=== PATIENT | female | born 2000 | race Caucasian/White ===

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

== ENCOUNTER 2022-01-17 00:50 | Inpatient (IN) | payer BC ==
[2022-01-17] VITALS (187 sets, daily range): BP systolic 105–127; BP diastolic 54–74; PULSE 87–119; TEMP 97.3–98.7; O2SAT 78–100
[~2022-01-17] VITALS: Ht 162.6 cm; Wt 70.9 kg
[2022-01-17 01:20] LABS: COLLECTION METHOD CLEAN CATCH
[2022-01-17 01:24] LABS: BASO # 0.1 K/mm3 (0.0-0.2); BASO % 0.6 % (0.0-2.0); EOS # 0.1 K/mm3 (0.0-0.7); EOS % 0.7 % (0.0-4.0); GRAN # 7.4 K/mm3 (1.4-6.5); GRAN % 63.6 % (42.2-75.2); HEMATOCRIT 42.3 % (35.0-45.0); HEMOGLOBIN 14.1 g/dl (12.0-15.0); LYMPH # 3.2 K/mm3 (1.2-3.4); LYMPH % 27.7 % (20.0-51.0); MEAN CELL VOLUME 90 fl (80.0-95.0); MEAN CORPUSCULAR HEMOGLOBIN 30 pg (26-32); MEAN CORPUSCULAR HGB CONC 33 g/dl (33.0-37.0); MEAN PLATELET VOLUME 10.8 fl (7.4-10.4); MONO # 0.8 K/mm3 (0.1-0.6); MONO % 6.8 % (1.7-9.3); PLATELET COUNT 431 K/mm3 (130-400); RED BLOOD COUNT 4.72 M/mm3 (4.10-5.30); REDCELL DISTRIBUTION WIDTH-CV 13.2 % (11.5-14.5)
[2022-01-17 01:27] LABS: PH 5 (5-8); SQUAMOUS EPITHELIAL 0-2 /hpf (0-10); URINE APPEARANCE Clear (CLEAR/HAZY); URINE BACTERIA None Seen /hpf (NONE SEEN); URINE BILIRUBIN Negative (NEGATIVE); URINE BLOOD 1+ (NEGATIVE); URINE COLOR Straw (YELLOW); URINE GLUCOSE 3+ (NEGATIVE); URINE KETONE 2+ (NEGATIVE); URINE LEUKOCYTE ESTERASE Negative (NEGATIVE); URINE NITRATE Negative (NEGATIVE); URINE PROTEIN(semi-quant) Negative (NEGATIVE); URINE RBC None Seen /hpf (0-2); URINE UROBILINOGEN Negative (NEGATIVE)
[2022-01-17 01:47] LABS: ALBUMIN 4.9 gm/dL (3.5-5.0); BILIRUBIN,TOTAL 0.6 mg/dL (0.2-1.2); CALCIUM 10.1 mg/dL (8.4-10.2); CREATININE, serum 1.63 mg/dL (0.57-1.11); POTASSIUM 4.4 mmol/L (3.5-4.5); TOTAL PROTEIN 8.8 gm/dL (6.2-8.1)
[2022-01-17] MEDS ORDERED: PROZAC60 MG PO (02:20)
[2022-01-17] MEDS ORDERED: LYUMJEV100 UNIT/1 SQ (02:22)
[2022-01-17 02:28] LABS: MAGNESIUM 2.3 mg/dL (1.7-2.2); PHOSPHOROUS 5.9 mg/dL (2.3-4.7)
[2022-01-17 02:47] LABS: TROPONIN-I < 0.010 ng/mL (0.00-0.033)
--- NOTE | 2022-01-17 03:57 | NUR ---
ASSUMED CARE OF PATIENT AFTER RECEIVING BEDSIDE REPORT FROM ER. PATIENT ABLE TO AMBULATE INDEPENDENTLY. PATIENT DENIES COMPLAINTS, CONCERNS, AND PAIN AT THIS TIME. PATIENT REPORTS FEELING MUCH BETTER. VSS. WILL CONTINUE TO MONITOR.
[2022-01-17 04:48] LABS: ANION GAP 25 mmol/L (7-16); BLOOD UREA NITROGEN 13 mg/dL (8-21); CALCIUM 8.4 mg/dL (8.4-10.2); CHLORIDE 112 mmol/L (98-107); CREATININE, serum 1.16 mg/dL (0.57-1.11); GLUCOSE 227 mg/dL (70-99); POTASSIUM 4.5 mmol/L (3.5-4.5); SODIUM 143 mmol/L (136-145)
[2022-01-17 04:54] LABS: CARBON DIOXIDE 6 mmol/L (22-29)
[2022-01-17 06:03] LABS: CALCIUM 8.3 mg/dL (8.4-10.2); CREATININE, serum 1.06 mg/dL (0.57-1.11); POTASSIUM 4.7 mmol/L (3.5-4.5)
--- NOTE | 2022-01-17 07:00 | NUR ---
REPORT RECEIVED FROM KILO PHELPS. PT SITTING UP IN CHAIR THIS AM. SLEPT MOST OF THE NIGHT IN CHAIR. NO OBVIOUS S/S DISCOMFORT. NO FLUIDS/GTTS RUNNING AT THIS TIME. PT RECEIVED 2 UNITS FFP OVERNIGHT FOR CRITICALLY HIGH INR. RHINO ROCKET IN PLACE IN LEFT NARE. DRIED BLOOD PRESENT AROUND NARE; NO ACTIVE BLEEDING. PT IN DROPLET/CONTACT ISOLATION DUE TO PENDING RESPIRATORY AND GI PANELS. PT WEARS 5L SIMPLE FACEMASK; WEARS 3L AT BASELINE. PLAN FOR ECHO THIS AM.
[2022-01-17 08:24] LABS: ANION GAP 16 mmol/L (7-16); BLOOD UREA NITROGEN 9 mg/dL (8-21); CALCIUM 8.1 mg/dL (8.4-10.2); CHLORIDE 114 mmol/L (98-107); CREATININE, serum 0.96 mg/dL (0.57-1.11); GLUCOSE 150 mg/dL (70-99); POTASSIUM 4.5 mmol/L (3.5-4.5); SODIUM 138 mmol/L (136-145)
[2022-01-17 08:29] LABS: CARBON DIOXIDE 8 mmol/L (22-29)
[2022-01-17 08:31] LABS: TROPONIN-I 6 HR POST INITIAL < 0.010 ng/mL (0.00-0.033)
[2022-01-17 12:41] LABS: CALCIUM 8.3 mg/dL (8.4-10.2); CREATININE, serum 0.96 mg/dL (0.57-1.11); POTASSIUM 3.9 mmol/L (3.5-4.5)
[2022-01-17 15:11] LABS: CALCIUM 8.4 mg/dL (8.4-10.2); CREATININE, serum 0.94 mg/dL (0.57-1.11); POTASSIUM 4.2 mmol/L (3.5-4.5)
--- NOTE | 2022-01-17 16:05 | NUR ---
court worker met with patient to discuss discharge planning. Patient states she lives in [place] with her parents and was visiting friends in [place]. Patient states that she her primary care provider is in [place] and that her insurance covers the cost of her insulin. Patient plans to return to her parents home upon discharge. Patient plans to discharge to parents home possibly tomorrow.
[2022-01-17 16:26] LABS: CALCIUM 8.7 mg/dL (8.4-10.2); CREATININE, serum 0.98 mg/dL (0.57-1.11); POTASSIUM 3.9 mmol/L (3.5-4.5)
--- NOTE | 2022-01-17 18:30 | NUR ---
Hold for 30 minutes then restart at 2units/hr.
[2022-01-17 18:35] LABS: CALCIUM 9.5 mg/dL (8.4-10.2); CREATININE, serum 1.02 mg/dL (0.57-1.11); POTASSIUM 3.7 mmol/L (3.5-4.5)
[2022-01-17 20:07] LABS: CALCIUM 8.5 mg/dL (8.4-10.2); CREATININE, serum 0.9 mg/dL (0.57-1.11); POTASSIUM 3.4 mmol/L (3.5-4.5)
[2022-01-17 22:33] LABS: CREATININE, serum 0.52 mg/dL (0.57-1.11); POTASSIUM 3.6 mmol/L (3.5-4.5)
[2022-01-17 22:41] LABS: CALCIUM 5.9 mg/dL (8.4-10.2)
[2022-01-18] VITALS: BP 133/92; PULSE 76; TEMP 97.3
[2022-01-18 04:00] VITALS: BP 120/70; PULSE 73; TEMP 97.4
[2022-01-18 05:54] LABS: CALCIUM 8.4 mg/dL (8.4-10.2); CREATININE, serum 0.7 mg/dL (0.57-1.11); MAGNESIUM 1.6 mg/dL (1.7-2.2); POTASSIUM 3.5 mmol/L (3.5-4.5)
[2022-01-18 08:30] VITALS: PULSE 81; TEMP 98.2
[2022-01-18] MEDS ORDERED: MAG-OX 400400 MG/TAB PO (09:39)
[2022-01-18] MEDS ORDERED: ZOFRAN ODT4 MG PO (09:40)
--- NOTE | 2022-01-18 11:50 | NUR ---
PT GETTING READY TO D/C HOME. FINISHED EATING LUNCH APPROX 30 MINUTES AGO. BLOOD GLUCOSE 401. PT USING HER HOME SLIDING SCALE AND GIVING HERSELF 14 UNITS REGULAR INSULIN NOW AND WILL CHECK BLOOD GLUCOSE 2 HOURS POST PRANDIAL.
--- NOTE | 2022-01-18 12:33 | NUR ---
PT D/C'D TO HOME. DISCHARGE INSTRUCTIONS AND MEDICATIONS REVIEWED. PT GIVEN EDUCATION ON DKA. THIS NURSE EDUCATED PT ON IMPORTANCE OF WEARING DEXCOM AND INSULIN PUMP. PT STATES SHE WILL PUT BOTH ON ONCE SHE GETS HOME. PT VERBALIZED UNDERSTANDING OF EDUCATION. BOTH IV'S REMOVED.
== END 2022-01-18 12:33 | disposition home or self-care (01) | DRG 638 ==
LOC: COL.ER 00:50 → ICU 02:00
PROVIDERS: Emergency Medicine; Internal Medicine; Nurse Practitioner Family; ADMIT Student in an Organized Health Care Education/Training Program
DX: E10.10 Type 1 diabetes mellitus with ketoacidosis without coma (principal); N17.9 Acute kidney failure, unspecified; E87.1 Hypo-osmolality and hyponatremia; F32.A Depression, unspecified; E87.8 Other disorders of electrolyte and fluid balance, not elsewhere classified; F41.9 Anxiety disorder, unspecified; F90.9 Attention-deficit hyperactivity disorder, unspecified type; E10.649 Type 1 diabetes mellitus with hypoglycemia without coma
CPT/HCPCS: 99223-AI; 99239; J1644; J1815; J2405; J2765; J3475; J3480; J7030

== ENCOUNTER 2022-12-30 20:46 | Inpatient (IN) | payer SELFPAY ==
[~2022-12-30] VITALS: Ht 162.6 cm; Wt 77.5 kg
[~2022-12-30 20:46] MED LIST changes: +LYUMJEV100 UNIT/1 SQ; +MAG-OX 400400 MG/TAB PO; +PROZAC60 MG PO; +ZOFRAN ODT4 MG PO
[2022-12-30] MEDS ORDERED: FLEXERIL 1010 MG/TAB PO (22:59)
[2022-12-30 23:51] LABS: BASO % 0.4 % (0.0-2.0); EOS # 0.1 K/mm3 (0.0-0.7); EOS % 1.7 % (0.0-4.0); GRAN # 4.8 K/mm3 (1.4-6.5); GRAN % 61.1 % (42.2-75.2); HEMATOCRIT 40.2 % (35.0-45.0); HEMOGLOBIN 13.6 g/dl (12.0-15.0); LYMPH # 2.4 K/mm3 (1.2-3.4); LYMPH % 30.3 % (20.0-51.0); MEAN CELL VOLUME 92 fl (80.0-95.0); MEAN CORPUSCULAR HEMOGLOBIN 31 pg (26-32); MEAN CORPUSCULAR HGB CONC 34 g/dl (33.0-37.0); MONO # 0.5 K/mm3 (0.1-0.6); PLATELET COUNT 321 K/mm3 (130-400); RED BLOOD COUNT 4.38 M/mm3 (4.10-5.30); REDCELL DISTRIBUTION WIDTH-CV 13.4 % (11.5-14.5)
[2022-12-30 23:58] LABS: COLLECTION METHOD CLEAN CATCH
[2022-12-31] VITALS (967 sets, daily range): BP systolic 95–123; BP diastolic 53–87; PULSE 93–167; TEMP 97.8–99.1; O2SAT 93–100
[2022-12-31 00:04] LABS: ALBUMIN 4.1 gm/dL (3.5-5.0); BILIRUBIN,TOTAL 0.8 mg/dL (0.2-1.2); CALCIUM 9.8 mg/dL (8.4-10.2); CREATININE, serum 1.35 mg/dL (0.57-1.11); POTASSIUM 5.3 mmol/L (3.5-4.5); TOTAL PROTEIN 7.9 gm/dL (6.2-8.1)
[2022-12-31 00:05] LABS: PH 5.5 (5.0-8.5); URINE APPEARANCE Clear (CLEAR/HAZY); URINE BLOOD TRACE-INTACT (NEGATIVE); URINE COLOR Straw (YELLOW); URINE GLUCOSE 2+ (NEGATIVE); URINE KETONE 3+ (NEGATIVE); URINE NITRATE Negative (NEGATIVE); URINE PROTEIN(semi-quant) Negative (NEGATIVE); URINE UROBILINOGEN 0.2 E.U/dL (0.2-1.0)
[2022-12-31 00:07] LABS: SQUAMOUS EPITHELIAL 0-2 /hpf (0-10); URINE BACTERIA None Seen /hpf (NONE SEEN); URINE RBC 0-2 /hpf (0-2); URINE WBC 0-2 /hpf (0-2)
--- NOTE | 2022-12-31 01:17 | NUR ---
Received report from ED nurse
--- NOTE | 2022-12-31 01:25 | NUR ---
Patient arrives to ICU room 6 via wheelchair. Patient is alert and oriented and is able to ambulate independently to ICU bed. Inital HR sustained 160s. Rula, hospitalist, aware. Other vitals within normal limits. Insulin drip on standby upon arrival. Inital BG obtained in ICU of 328. She denies any pain or discomfort.
[2022-12-31] MEDS ORDERED: VITAMIND3 5000 PO (01:45)
[2022-12-31] MEDS ORDERED: ISIBLOOM 28 DA1 EACH PO (01:46)
--- NOTE | 2022-12-31 02:45 | NUR ---
Patient's belongings include street clothes, a bookbag, a cellphone and pierogi maker, a pink metal tumbler, 4 multi-colored bracelets, and a necklace. She denies having dentures and hearing aids. She states she wears glasses to drive but that she does not have them with her. She denies having a purse or wallet included with belongings in bookbag.
[2022-12-31 04:14] LABS: CALCIUM 8.1 mg/dL (8.4-10.2); CREATININE, serum 0.86 mg/dL (0.57-1.11); POTASSIUM 4.2 mmol/L (3.5-4.5)
[2022-12-31 04:20] LABS: TRICYCLIC ANTIDEPRESS URINE NEGATIVE
[2022-12-31 07:26] LABS: CALCIUM 7.9 mg/dL (8.4-10.2); CREATININE, serum 0.81 mg/dL (0.57-1.11)
--- NOTE | 2022-12-31 10:49 | NUR ---
Initial visit; Patient thanked Line Dancer for offering Ashes for Slava Thursday along with offering her God's blessings for rapid healing.
[2022-12-31 11:32] LABS: CALCIUM 8.7 mg/dL (8.4-10.2); CREATININE, serum 0.84 mg/dL (0.57-1.11); POTASSIUM 3.8 mmol/L (3.5-4.5)
--- NOTE | 2022-12-31 14:06 | NUR ---
Title I Instructional Assistant met with Patient in her room to conducr Care Managment intake and discuss discharge planning. Patient was alert and oriented X3. Patient reports that she lives in [place] and was in [place], [place] due to being a [employer] student. Patient reports that her mother, Pam, is her familial point of contact P: [phone]. Patient reports that she has no PCP and has no insurance at this time. PAtient denies the use of MDE and O2 at home. Patient does not have AD on file and declined AD paperwork. Patient reports to have transportation if discharged directly home. LIAM contacted Pam via phone to collaborate with the family for discharge planning. Pam reported that she is on site and will meet with SW on this day.
[2022-12-31 15:23] LABS: CREATININE, serum 0.75 mg/dL (0.57-1.11)
--- NOTE | 2022-12-31 15:31 | NUR ---
Billing Clinician met with Patient's parents Pam and her at bedside to review Patient's discharge plan and reflect on any concerns for Patient needs when discharged. Aletha reported no concerns at this time.
[2022-12-31 17:01] LABS: CALCIUM 9.1 mg/dL (8.4-10.2); CREATININE, serum 0.72 mg/dL (0.57-1.11); POTASSIUM 3.9 mmol/L (3.5-4.5)
[2022-12-31 19:02] LABS: CALCIUM 9.1 mg/dL (8.4-10.2); CREATININE, serum 0.71 mg/dL (0.57-1.11); POTASSIUM 3.5 mmol/L (3.5-4.5)
[2022-12-31 20:52] LABS: CALCIUM 8.9 mg/dL (8.4-10.2); CREATININE, serum 0.72 mg/dL (0.57-1.11); POTASSIUM 3.9 mmol/L (3.5-4.5)
[2022-12-31 22:51] LABS: CALCIUM 8.8 mg/dL (8.4-10.2); CREATININE, serum 0.72 mg/dL (0.57-1.11); POTASSIUM 3.7 mmol/L (3.5-4.5)
[2023-01-01] VITALS (542 sets, daily range): BP systolic 118–121; BP diastolic 67–90; PULSE 75–80; TEMP 98–98.2; O2SAT 92–100
[2023-01-01 06:38] LABS: BASO % 0.4 % (0.0-2.0); EOS # 0.2 K/mm3 (0.0-0.7); EOS % 3.6 % (0.0-4.0); GRAN % 41.5 % (42.2-75.2); LYMPH # 2.3 K/mm3 (1.2-3.4); LYMPH % 47.6 % (20.0-51.0); MEAN CELL VOLUME 90 fl (80.0-95.0); MEAN CORPUSCULAR HGB CONC 34 g/dl (33.0-37.0); MEAN PLATELET VOLUME 9.1 fl (7.4-10.4); MONO # 0.3 K/mm3 (0.1-0.6); MONO % 6.3 % (1.7-9.3); PLATELET COUNT 229 K/mm3 (130-400); RED BLOOD COUNT 3.65 M/mm3 (4.10-5.30); REDCELL DISTRIBUTION WIDTH-CV 13.8 % (11.5-14.5)
[2023-01-01 06:41] LABS: MEAN CORPUSCULAR HEMOGLOBIN 31 pg (26-32)
[2023-01-01 06:42] LABS: HEMATOCRIT 32.9 % (35.0-45.0); HEMOGLOBIN 11.2 g/dl (12.0-15.0)
[2023-01-01 06:56] LABS: CALCIUM 8.2 mg/dL (8.4-10.2); CREATININE, serum 0.66 mg/dL (0.57-1.11); POTASSIUM 3.8 mmol/L (3.5-4.5)
--- NOTE | 2023-01-01 07:21 | NUR ---
RECEIVED REPORT FROM [facility]. LABS, ORDERS, AND MEDICATIONS REVIEWED.
--- NOTE | 2023-01-01 09:57 | NUR ---
HEAD TO TOE ASSESSMENT COMPLETED. BLOOD SUGAR LEVEL OBTAINED. INSULIN AND OTHER MEDICATIONS ADMINISTERED PER EMAR. PATIENT HAS NO COMPLAINTS OR PAIN OR OTHER CONCERS AT THIS TIME. CALL LIGHT WITHIN REACH. WILL CONTINUE TO MONITOR.
[2023-01-01] MEDS ORDERED: BASAGLAR K100 UNIT/1 SQ (11:31)
== END 2023-01-01 12:01 | disposition home or self-care (01) | DRG 638 ==
LOC: COL.ER 20:46 → ICU 12-31 00:23 → COL.ER 12-31 00:23 → ICU 12-31 00:24
PROVIDERS: Internal Medicine; Physician Assistant; Student in an Organized Health Care Education/Training Program; ADMIT Internal Medicine
DX: E10.10 Type 1 diabetes mellitus with ketoacidosis without coma (principal); N17.9 Acute kidney failure, unspecified; F10.90 Alcohol use, unspecified, uncomplicated; E87.5 Hyperkalemia; F90.9 Attention-deficit hyperactivity disorder, unspecified type; F41.9 Anxiety disorder, unspecified; Z79.4 Long term (current) use of insulin; V89.2XXA Person injured in unspecified motor-vehicle accident, traffic, initial encounter; Z23 Encounter for immunization; Y93.89 Activity, other specified; Y92.89 Other specified places as the place of occurrence of the external cause
CPT/HCPCS: OP; J1650; J1815; J2060; J7030; Q9967

== ENCOUNTER 2023-03-09 18:13 | Emergency (ER) | payer BC ==
[~2023-03-09 18:13] MED LIST changes: +FLEXERIL 1010 MG/TAB PO; +ISIBLOOM 28 DA1 EACH PO; +VITAMIND3 5000 PO
--- NOTE | 2023-03-09 18:40 | NUR ---
RT CALLED TO ER FOR INCOMING CODE BLUE, PT ARRIVED. WITH OPA AND BAG-VALVE WITH MASK BEING MANUALLY RESUSCITATED. PT WAS ALSO ON COTY FOR MECHANICAL COMPRESSIONS. PT WAS REPORTED TO BE DOWN AND CODING FOR AT LEAST 35 MINUTES PRIOR TO ARRIVAL. ER DOC THEN DROPPED AN I-GEL AND MANUAL VENTILATION BECAME MORE DIFFICULT AND PEEP VALVE WAS INCREASED IN TO 8, AND BECOMING MORE DIFFICULT. AFTER A FEW MORE MINUTES OF COMPRESSIONS, ER DOC CALLED THE TIME OF AND AMBU BAG WAS REMOVED BY RT BUT I-GEL WAS KEPT IN PLACE AT MY DEPARTURE.
== END 2023-03-10 00:09 | disposition expired ==
LOC: COL.ER 18:13
DX: I46.9 Cardiac arrest, cause unspecified (principal); E10.9 Type 1 diabetes mellitus without complications
CPT/HCPCS: J0171